=== PATIENT | male | born 1980 | race Caucasian/White ===

== ENCOUNTER 2020-04-19 09:52 | Outpatient (CLI) | payer BC, SELFPAY ==
--- NOTE | ~2020-04-19 | US_ITS ---
EXAMINATION: US right upper quadrant EXAM DATE: 04/19/2020 10:24 INDICATION: Elevated liver enzymes. TECHNIQUE: Multiple grayscale and Doppler images of the abdomen right upper quadrant were obtained (b y a technologist who performed the scan) and subsequently reviewed. Comparison is made to prior exami nation from 08/03/2015. FINDINGS: The pancreatic head and body are normal in appearance. The pancreatic tail is not visualized. There is echogenic liver parenchyma with poor penetration, hepatic steatosis, is more echogenic than [facility]. There are no focal liver lesions identified. There is no evidence of intrahepatic b iliary duct dilation. Portal venous flow was seen in the hepatopedal, normal direction and has rebeka l Doppler waveform. No right-sided hydronephrosis. Common bile duct measures 6 mm, which is upper limits of normal. The gallbladder wall is normal in th ickness, with expected amount of distention. No sonographic evidence of pericholecystic fluid. Ther e is no cholelithiases. Technologist performing exam reports patient did not demonstrate sonographic Alonso's sign. Please note that this sign is less reliable in patients who have received pain medica tion. IMPRESSION: 1. Hepatic steatosis. Reviewed, dictated and finalized at location A. [facility] [employer]ER IMPRESSION: 1. Hepatic steatosis.
== END 2020-04-19 09:53 | disposition home or self-care (01) ==
PROVIDERS: Family Provider Internal Medicine; PCP Internal Medicine; Visit Provider Clinical Nurse Specialist
DX: R74.8 Abnormal levels of other serum enzymes (principal); K76.0 Fatty (change of) liver, not elsewhere classified
CPT/HCPCS: 76705